=== PATIENT | male | born 1955 | race Two or more races ===

== ENCOUNTER 2019-03-28 14:20 | Emergency (ER) | payer MEDICARE, BC ==
[~2019-03-28] VITALS: Ht 167.6 cm; Wt 97.5 kg
[2019-03-28 14:34] VITALS: BP 136/81
[2019-03-28] MEDS ORDERED: CEFTRIAXONE 500 MG VIAL IM ONE (15:00)
[2019-03-28] MEDS ORDERED: CIPROFLOXACIN HCL 250 MG TABLET PO ONE (15:00)
[2019-03-28] MEDS ORDERED: LIDOCAINE /MPF 1% VIAL 5 ML VIAL ONE (15:10)
[2019-03-28] MEDS ORDERED: CEFTRIAXONE 500 MG VIAL ONE (15:10)
[2019-03-28] MEDS ORDERED: CIPROFLOXACIN HCL 500 MG TABLET ONE (15:10)
== END 2019-03-28 15:22 | disposition home or self-care (01) ==
LOC: ER 14:20
DX: L03.031 Cellulitis of right toe (principal); I10 Essential (primary) hypertension; E11.9 Type 2 diabetes mellitus without complications; M10.9 Gout, unspecified
CPT/HCPCS: 96372; 99283; J0696; J3490